=== PATIENT | female | born 1945 | race Caucasian/White ===

== ENCOUNTER 2022-06-02 07:42 | Observation (INO) ==
--- NOTE | 2022-05-02 15:09 | PAT Medication Instructions ---
Medication Instructions Date of Service May 02, 2022 Home Medications Medication Instructions Recorded tramadol 50 mg tablet 50 mg PO Q8H PRN #30 tab 03/28/22 amlodipine 5 mg tablet 5 mg PO QAM baclofen 10 mg tablet 10 mg PO QPM cholecalciferol (vitamin D3) 50 mcg (2,000 unit) tablet (Vitamin D3) 50 mcg PO QAM citalopram 10 mg tablet 10 mg PO QAM levothyroxine 25 mcg capsule 25 mcg PO QAM multivit with min-folic acid-lutein 200 mcg-137.5 mcg chewable tablet (Adult Multivitamin (w-lutein)) 1 tab PO QAM pregabalin 100 mg capsule (Lyrica) 100 mg PO TID ropinirole 0.5 mg tablet 2.5 mg PO QAM ropinirole 2 mg tablet 2 mg PO QAM tramadol 50 mg tablet 50 mg PO Q8H PRN pregabalin 25 mg capsule (Lyrica) 25 mg PO TID DO NOT take the morning of surgery cholecalciferol (vitamin D3) 50 mcg (2,000 unit) tablet (Vitamin D3) 50 mcg PO QAM multivit with min-folic acid-lutein 200 mcg-137.5 mcg chewable tablet (Adult Multivitamin (w-lutein)) 1 tab PO QAM ropinirole 0.5 mg tablet 2.5 mg PO QAM ropinirole 2 mg tablet 2 mg PO QAM Take morning of surgery With a small sip of water, OTHERWISE NOTHING TO EAT OR DRINK AFTER MIDNIGHT: citalopram 10 mg tablet 10 mg PO QAM levothyroxine 25 mcg capsule 25 mcg PO QAM amlodipine 5 mg tablet 5 mg PO QAM pregabalin 100 mg capsule (Lyrica) 100 mg PO TID tramadol 50 mg tablet 50 mg PO Q8H PRN (if needed) pregabalin 25 mg capsule (Lyrica) 25 mg PO TID Take evening before surgery baclofen 10 mg tablet 10 mg PO QPM tramadol 50 mg tablet 50 mg PO Q8H PRN (if needed) pregabalin 25 mg capsule (Lyrica) 25 mg PO TID Other Notes If you have any questions please call us at [phone] or [phone] or [phone] or [phone]
--- NOTE | 2022-05-05 10:35 | Anesthesiology Consultation ---
Date of Service May 05, 2022 Assessment & Plan (1) Encounter for pre-operative examination: - Hx syncope/near syncope: Patient reported having recent echo done but she could not remember indication at PAT visit. Received Echo which was done 03/29/22- indication on report was syncope. Called patient: she states she does have intermittent episodes of syncope/near syncope. No syncopal episodes in the last several months but does still occasional near syncope episodes (like when coming out of hot shower). Spoke with patient's PCP (ROMARIO Chanel) who confirmed patients reports of hx of syncope/near syncope and unremarkable workup of this- she states she does not feel anything further needed prior to shoulder surgery from this perspective stating she "should be okay" for surgery as scheduled without further testing and/or evaluation. - COVID screening: Per assessment on 05/05: No known COVID-19 positive contacts or current COVID-19 related symptoms. Travel screen negative. Patient v accinated. Surgeon arranging preop COVID testing. Awaiting results. Chart Review Chart Review: Acceptable Risk for Surgery (pending evaluation AM DOS) and Patient seen in Pre Admission Testing Teaching & Discussion Pre-Anesthesia Teaching/Discussion Notes: Instructed NPO after midnight before surgery,except medications with 15 cc of water. Medication instructions provided according to the PAT guidelines. History Surgery Operation Date: 06/02/22 11:30 Proposed Procedures p Left Reverse Total Shoulder Arthroplasty - Alfredito Martin, Height/Weight Height: 5 ft 3 in Weight: 88.1 kg Allergies Allergy/AdvReac Type Severity Reaction Status Date / Time adhesive Allergy Mild Blistering Verified 11/14/15 16:46 skin celecoxib Allergy Mild Rash Verified 11/14/15 16:46 atorvastatin [From Lipitor] AdvReac Intermediate Leg pain Verified 05/05/22 11:21 Medications Home Medications Medication Instructions Recorded Confirmed Last Taken amlodipine 5 mg tablet 5 mg PO QAM 11/29/21 05/02/22 Unknown baclofen 10 mg tablet 10 mg PO QPM 11/29/21 05/02/22 Unknown cholecalciferol (vitamin D3) 50 50 mcg PO QAM 11/29/21 05/02/22 Unknown mcg (2,000 unit) tablet (Vitamin D3) citalopram 10 mg tablet 10 mg PO QAM 11/29/21 05/02/22 Unknown levothyroxine 25 mcg capsule 25 mcg PO QAM 11/29/21 05/02/22 Unknown multivit with min-folic 1 tab PO QAM 11/29/21 05/02/22 Unknown acid-lutein 200 mcg-137.5 mcg chewable tablet (Adult Multivitamin (w-lutein)) pregabalin 100 mg capsule (Lyrica) 100 mg PO TID 11/29/21 05/02/22 Unknown ropinirole 0.5 mg tablet 0.5 mg PO QAM 11/29/21 05/05/22 Unknown ropinirole 2 mg tablet 2 mg PO QAM 11/29/21 05/02/22 Unknown tramadol 50 mg tablet 50 mg PO Q8H PRN #30 tab 03/28/22 05/02/22 Unknown pregabalin 25 mg capsule (Lyrica) 25 mg PO TID 05/02/22 05/02/22 Unknown Past Medical History Medical History Anxiety Bilateral cataracts Hearing deficit History of COVID-19 Dx 06/2021 > symptoms at time: fatigue > resolved Hypertension Hypothyroidism Osteoarthritis Knees Exercise / Class Metabolic Activity II 4-5 Yardwork/Stairs/Walk up hill Past Family History Family History Father Skin cancer Father Hypertension Mother Hypertension Father Stroke Mother Stroke Uterine cancer Sister Diabetes Sister Stroke Myocardial infarction Sister Hypertension Past Surgical History Surgical History History of anesthesia reaction Slow to wake History of bilateral knee arthroplasty History of colonoscopy History of repair of hiatal hernia Hx of total hysterectomy Hx of wisdom tooth extraction Past Anesthesia History No Family Hx of Anesthesia Complications and Other (Slow to wake, "nasty" with anesthesia emergence hiatal hernia) History of PONV No Hx of Motion Sickness Social History Smoking Status: Never smoker Do You Dip or Chew Tobacco: No Hx Alcohol Use: No Hx Substance Use: No substance use type: does not use Review of Systems Patient denies chest pain, shortness of breath, dyspnea on exertion, fever, chills, cough, wheezing, palpitations. Physical Exam Vital Signs VITALS BP 154/73 P 62 TEMP 98.3 SP02 96%RA RESP 16 PHYSICAL Full cervical extension range of motion. Full TMJ range of motion. TMD 3 finger breaths Mallampati Score 3 Dentition: upper full denture Lungs: clear throughout to auscultation Cardiac: regular rate and rhythm, no murmurs noted Spine: normal Carotid arteries: negative bruit Extremities: no edema Lab Results Anesthesia Preop Results Results Anesthesia Widget: WBC 7.84 K/uL (4.8-10.8) 05/05/22 Hgb 14.3 g/dL (12.0-16.0) 05/05/22 Hct 44.0 % (37-47) 05/05/22 Plt 288 K/uL (130-400) 05/05/22 Na 141 mmol/L (136-145) 05/05/22 K 3.9 mmol/L (3.5-5.1) 05/05/22 Cl 106 mmol/L (98-107) 05/05/22 CO2 29 mmol/L (21-32) 05/05/22 BUN 15 mg/dl (6-23) 05/05/22 Creat 0.59 mg/dl (0.6-1.2) L 05/05/22 Glucose Level 77 mg/dl (70-99(Fasting)) 05/05/22 PT 10.2 Seconds (9.0-12.0) 05/05/22 PTT 26.5 Seconds (21.0-31.0) 05/05/22 INR 1.0 (0.9-1.1) 05/05/22 Blood Type A Positive 05/05/22 Antibody Screen NEGATIVE 05/05/22 Testing Electrocardiogram Date: 05/05/22 SB at 59bpm. Low voltage QRS. PRWP, consider anterior MA vs lead placement vs LVH (compared to 04/25/2000, questionable change in QRS duration per form carpenter comparison). Chest X-Ray Date: 05/05/22 FINDINGS: Lung volumes are normal. Lungs are clear. There is no pneumothorax or pleural effusion. Mild cardiomegaly. Mediastinal contours are normal. There is no evidence for pulmonary edema. IMPRESSION: No acute cardiopulmonary findings. Mild cardiomegaly. Echocardiogram Date: 03/29/22 EF 50 to 55%. Low normal global left ventricular systolic function. Borderline concentric LVH. Impaired relaxation pattern of LV diastolic filling. Mild thickening calcification of the anterior and posterior mitral valve leaflets.
--- NOTE | 2022-06-01 07:45 | History & Physical Report ---
Date of Service June 01, 2022 History of Present Illness Chief Complaint: Cuff tear arthropathy of the left shoulder. Primary Care Provider: Suhail Waters MD Angelia is a pleasant 76-year-old female who has been dealing with chronic bilateral shoulder pain. 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 She is really struggling with her left shoulder. After failing conservative treatment, she elected to proceed with a left reverse shoulder arthroplasty. Allergies Allergy/AdvReac Type Severity Reaction Status Date / Time adhesive Allergy Mild Blistering Verified 11/14/15 16:46 skin celecoxib Allergy Mild Rash Verified 11/14/15 16:46 atorvastatin [From Lipitor] AdvReac Intermediate Leg pain Verified 05/05/22 11:21 Home Medications Medication Instructions Recorded Confirmed Type amlodipine 5 mg tablet 5 mg PO QAM 11/29/21 05/02/22 History baclofen 10 mg tablet 10 mg PO QPM 11/29/21 05/02/22 History cholecalciferol (vitamin D3) 50 50 mcg PO QAM 11/29/21 05/02/22 History mcg (2,000 unit) tablet (Vitamin D3) citalopram 10 mg tablet 10 mg PO QAM 11/29/21 05/02/22 History levothyroxine 25 mcg capsule 25 mcg PO QAM 11/29/21 05/02/22 History multivit with min-folic 1 tab PO QAM 11/29/21 05/02/22 History acid-lutein 200 mcg-137.5 mcg chewable tablet (Adult Multivitamin (w-lutein)) pregabalin 100 mg capsule (Lyrica) 100 mg PO TID 11/29/21 05/02/22 History ropinirole 0.5 mg tablet 0.5 mg PO QAM 11/29/21 05/05/22 History ropinirole 2 mg tablet 2 mg PO QAM 11/29/21 05/02/22 History tramadol 50 mg tablet 50 mg PO Q8H PRN pain #30 tabs 03/28/22 05/02/22 Rx pregabalin 25 mg capsule (Lyrica) 25 mg PO TID 05/02/22 05/02/22 History Past Med/Surg History Medical History Anxiety Bilateral cataracts Hearing deficit History of COVID-19 Dx 06/2021 > symptoms at time: fatigue > resolved Hypertension Hypothyroidism Osteoarthritis Knees Surgical History History of anesthesia reaction Slow to wake History of bilateral knee arthroplasty History of colonoscopy History of repair of hiatal hernia Hx of total hysterectomy Hx of wisdom tooth extraction Family History Father Skin cancer Father Hypertension Mother Hypertension Father Stroke Mother Stroke Uterine cancer Sister Diabetes Sister Stroke Myocardial infarction Sister Hypertension Social History Smoking Status: Never smoker Second Hand Exposure: No; Hx Alcohol Use: No Hx Substance Use: No Preferred Language: Kiswahili Communication Ability: Effective English Faculty Member Required: No Beliefs That Will Affect Care: None Current Living Situation: Spouse Feels Safe at Home: Yes Assistive Devices: Cane, Denture - Upper and Glasses Review of Systems All systems reviewed & are unremarkable except as noted in HPI & below. Physical Exam . Results & Data Results & Data Laboratory Results . Diagnostic Findings . PG Care Time/CCT Total # of Minutes Spent Total Time Spent with Patient: Total time spent is greater than 50% in coordination of care (as documented) at patient's floor/unit and/or counseling patient: Coding Level of Care Code None
--- NOTE | 2022-06-01 08:00 | History & Physical Report ---
Date of Service June 01, 2022 Assessment & Plan (1) Rotator cuff tear arthropathy of left shoulder: We will proceed with a left reverse shoulder arthroplasty. Postoperatively she will be kept overnight in the hospital for postop medical management. She plans to have the hospital set up home health upon discharge. History of Present Illness Chief Complaint: Cuff tear arthropathy of the left shoulder. Primary Care Provider: Suhail Waters MD Angelia is a pleasant 76-year-old female who has been dealing with chronic bilateral shoulder pain. 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 She is really struggling with her left shoulder. After found conservative treatment, she has elected proceed with a left reverse shoulder arthroplasty. Allergies Allergy/AdvReac Type Severity Reaction Status Date / Time adhesive Allergy Mild Blistering Verified 11/14/15 16:46 skin celecoxib Allergy Mild Rash Verified 11/14/15 16:46 atorvastatin [From Lipitor] AdvReac Intermediate Leg pain Verified 05/05/22 11:21 Home Medications Medication Instructions Recorded Confirmed Type amlodipine 5 mg tablet 5 mg PO QAM 11/29/21 05/02/22 History baclofen 10 mg tablet 10 mg PO QPM 11/29/21 05/02/22 History cholecalciferol (vitamin D3) 50 50 mcg PO QAM 11/29/21 05/02/22 History mcg (2,000 unit) tablet (Vitamin D3) citalopram 10 mg tablet 10 mg PO QAM 11/29/21 05/02/22 History levothyroxine 25 mcg capsule 25 mcg PO QAM 11/29/21 05/02/22 History multivit with min-folic 1 tab PO QAM 11/29/21 05/02/22 History acid-lutein 200 mcg-137.5 mcg chewable tablet (Adult Multivitamin (w-lutein)) pregabalin 100 mg capsule (Lyrica) 100 mg PO TID 11/29/21 05/02/22 History ropinirole 0.5 mg tablet 0.5 mg PO QAM 11/29/21 05/05/22 History ropinirole 2 mg tablet 2 mg PO QAM 11/29/21 05/02/22 History tramadol 50 mg tablet 50 mg PO Q8H PRN pain #30 tabs 03/28/22 05/02/22 Rx pregabalin 25 mg capsule (Lyrica) 25 mg PO TID 05/02/22 05/02/22 History Past Med/Surg History Medical History Anxiety Bilateral cataracts Hearing deficit History of COVID-19 Dx 06/2021 > symptoms at time: fatigue > resolved Hypertension Hypothyroidism Osteoarthritis Knees Surgical History History of anesthesia reaction Slow to wake History of bilateral knee arthroplasty History of colonoscopy History of repair of hiatal hernia Hx of total hysterectomy Hx of wisdom tooth extraction Family History Father Skin cancer Father Hypertension Mother Hypertension Father Stroke Mother Stroke Uterine cancer Sister Diabetes Sister Stroke Myocardial infarction Sister Hypertension Social History Smoking Status: Never smoker Second Hand Exposure: No; Hx Alcohol Use: No Hx Substance Use: No Preferred Language: Amharic Communication Ability: Effective Field Collector Required: No Beliefs That Will Affect Care: None Current Living Situation: Spouse Feels Safe at Home: Yes Assistive Devices: Cane, Denture - Upper and Glasses Review of Systems All systems reviewed & are unremarkable except as noted in HPI & below. Physical Exam On physical examination of the left shoulder, she has a pseudoparalysis. She is unable to initiate forward elevation. She has pain of the glenohumeral joint line and subacromial space.. Constitutional WD/WN, vitals as above Respiratory normal respiratory effort, lungs clear to auscultation Cardiovascular RRR, no murmur, no edema Gastrointestinal (Abdomen) normal bowel sounds, soft, nontender, no hepatosplenomegaly Results & Data Results & Data Laboratory Results . Diagnostic Findings X-rays of the left shoulder show some mild to moderate arthritis. The slight superior migration of the humeral head in the glenoid.. PG Care Time/CCT Total # of Minutes Spent Total Time Spent with Patient: Total time spent is greater than 50% in coordination of care (as documented) at patient's floor/unit and/or counseling patient: Coding Level of Care Code None Diagnoses Rotator cuff tear arthropathy of left shoulder M75.102; M12.812
[~2022-06-02 07:42] MED LIST: ACETAMINOPHEN 500 MG TAB PO SCH; BUPIVACAINE 0.5 % 5 MG/1 ML PF 10ML VIAL ONE; DEXAMETHASONE SOD INJ 4 MG/ML VIAL ONE; FAMOTIDINE 20 MG TAB PO SCH; GABAPENTIN 300 MG CAP PO SCH; Ketorolac (*for OR use only*) 30 MG, dexAMETHasone 4 MG, KETAMINE HCL (**OR use only) 1... INFIL SCH; LIDOCAINE 2% 20 MG/ML 5 ML SYR IV ONE; LR 15ML/HR IV SCH; LR 60ML/HR IV SCH; MIDAZOLAM HCL 1 MG/ML 2ML VIAL ONE; ONDANSETRON INJ 2 MG/ML 2 ML VIAL ONE; PROPOFOL IV EMULSION 10 MG/ML 20 ML VIAL IV ONE; ROCURONIUM BROMIDE 10 MG/ML 5 ML VIAL IV ONE; TRANEXAMIC ACID 1,000 MG **IV Intra-op IV SCH; TRANEXAMIC ACID 1,000 MG **IV Pre-op IV SCH; ceFAZolin 2000MG 2,000 MG/15 ML SYR IV SCH; dexAMETHasone 4 MG TAB PO SCH; fentaNYL citrate 100 MCG/2 ML VIAL ONE
--- NOTE | 2022-06-02 08:15 | History & Physical Bridge Note ---
Date of Service June 02, 2022 History & Physical Bridge Note I have examined the patient, reviewed the History & Physical and in the interval since the performance of the History & Physical I have noted the following changes of clinical significance: no changes noted
[2022-06-02] MEDS ORDERED: ORTHO JOINT ANESTHETIC ONE (08:50)
[2022-06-02] MEDS ORDERED: fentaNYL citrate 100 MCG/2 ML VIAL IV PRN (08:53)
[2022-06-02] MEDS ORDERED: ONDANSETRON INJ 2 MG/ML 2 ML VIAL IV PRN ×2 (08:53→15:27)
[2022-06-02] MEDS ORDERED: ATROPINE SULFATE 0.1 MG/ML 10ML SYR IV PRN (08:53)
[2022-06-02] MEDS ORDERED: ePHEDrine sulfate 50 MG/ML AMP IV PRN (08:53)
--- NOTE | 2022-06-02 10:22 | Operative Report ---
PG Post Operative Report Pre & Post Diagnosis Operation Date: 06/02/22 09:10 Pre-Op Diagnosis: Left Shoulder Osteoarthritis with tendinopathy of the long head of biceps tendon Post-Op Diagnosis: Left Shoulder Osteoarthritis with tendinopathy of the long head of the biceps tendon I identified the patient and participated in the time-out.: Yes Procedure Operation Date: 06/02/22 09:10 Actual Procedures p Left Reverse Total Shoulder Arthroplasty(Left) with open biceps tenodesis as a distinct and separate procedure (modifier 59)- Alfredito Martin DO Surgeon Alfredito Martin DO Resistor Winder Alfredito Neves PA-C Estimated Blood Loss 200 Findings Consistent with Post-Op Diagnosis Specimens Left humeral head Description of Procedure A CPT code modifier 59: The long head of the biceps tendon was enlarged and inflamed consistent with tendinopathy. A tenodesis was opted. This was a separate and distinct portion of the procedure. For these reasons, a CPT code modifier 59 will be added to this case. Implants used: I used a [employer] Comprehensive reverse total shoulder arthroplasty system with a size 8 press fit micro humeral stem, a +6 offset humeral tray and a standard humeral bearing, a 25 mm small augment baseplate with a 6.5 mm central screw and superior and inferior locking screws, and a size 40 mm eccentric glenosphere. Angelia arrived at [facility] for the above procedure. She was seen in the preoperative holding area and the operative extremity was identified and signed. She was given a preoperative antibiotic, TXA, and an interscalene nerve block. She was taken back to the operating room, laid on table in supine position, and put under general anesthesia. She was then put into the beachchair position. The shoulder was then prepped and draped in sterile fashion. A timeout was done and the patient and the operative extremity was properly identified. A deltopectoral approach was used. Dissection was taken down through the fascia and the deltoid was retracted laterally and the conjoined tendon was retracted medially. The anterior shoulder was exposed. The biceps groove was opened up and the biceps tendon was examined extensively. The biceps tendon demonstrated enlargement and inflammatory changes consistent with longstanding inflammation in the context of osteoarthritis and cuff arthropathy. The long head of the biceps tendon was then tenodesed to the upper border of the pectoralis major. This was a separate and distinct portion of the procedure. The subscapularis was then directly released off the lesser tuberosity with a peel technique. The inferior capsule was released and the humeral head was dislocated. A canal finding reamer was sent down the center of the humeral canal. Sequential reaming up to a size 8 reamer was done. Off that reamer, a proximal humeral resection guide was placed. The proximal humerus was resected at 135 of inclination and 25 of retroversion. Osteophytes were then removed and the glenoid was exposed. Time was spent doing a complete capsular and labral release. The glenoid guide was then placed in the inferior aspect of the glenoid. A 3.2 mm Steinmann pin was then placed into the glenoid vault at 10 of inclination. The glenoid baseplate was then reamed. The final size 25 mm small augment baseplate was then impacted in the place. A 6.5 mm central screw was then placed followed by superior and inferior locking screws. A 40 mm eccentric glenosphere was then impacted into place. Surrounding soft tissues were then injected with 100 cc an orthopedic pain control cocktail. The proximal humerus was then exposed. Sequential broaching of the humerus up to a size 8 broach was done. Off that broach a +6 offset humeral tray was trialed. The shoulder was then reduced, brought through a full range of motion, and felt to be stable. The shoulder was then dislocated and the broach was removed. The final size 8 micro press-fit humeral stem was then impacted into place. A standard humeral bearing was then snapped onto a +6 offset humeral tray. The humeral tray was then impacted onto the humeral stem. The shoulder was once again reduced, brought through a full range of motion, and felt to be stable. The subscapularis was very poor quality and unable to be repaired. A dilute betadyne lavage was then done for 3 minutes. The joint was then irrigated with normal saline solution. Hemostasis was obtained. The interval was closed with 2-0 Vicryl suture. The skin was then closed with 2-0 Vicryl and sam. A Silverlon dressing was placed and the arm was rested in a regular arm sling. She was then extubated and transferred to a hospital bed. She taken to the ostanesthesia care unit in stable condition. She tolerated the procedure well. Alfredito Neves PA-C, was present for the entire procedure. He was critical for patient positioning, prepping, draping, retraction exposure, wound closure and application of sterile dressing. I attest to the content of the Intraoperative Record and any orders documented therein. Any exceptions are noted below.
[2022-06-02] MEDS ORDERED: NEOSTIGMINE METHYLSULFATE 1 MG/ML 10ML VIAL ONE (10:26)
[2022-06-02] MEDS ORDERED: GLYCOPYRROLATE 0.2 MG/ML VIAL ONE (10:26)
--- NOTE | 2022-06-02 11:15 | XRay Report ---
XR shoulder LT min 2V routine CLINICAL HISTORY: Post shoulder surgery TECHNIQUE: 3 views of the left shoulder were obtained. Comparison: Comparison is made to shoulder radiograph 08/29/2022 FINDINGS: Patient is status post shoulder arthroplasty with expected postsurgical changes including soft tissue swelling, subcutaneous emphysema, and surgical staple placement. No periarticular lucency or hardwar e fracture is seen. IMPRESSION: Expected postoperative appearance status post placement of shoulder arthroplasty. ACT 112: Negative or not required by law. Electronically signed by: Juan Aguirre M.D. 06/02/2022 11:14 AM
--- NOTE | 2022-06-02 14:11 | Anesthesiology Progress Note ---
Date of Service June 02, 2022 Anesthesia Post Procedure Vital Signs Vital Signs: Temp Pulse Resp BP Pulse Ox O2 Del Method O2 Flow Rate 06/02/22 14:00 97.7 F 86 16 116/59 L 96 Nasal Cannula 2 06/02/22 13:00 97.9 F 82 18 104/47 L 95 Nasal Cannula 2 06/02/22 12:30 79 21 130/59 L 95 Nasal Cannula 2 06/02/22 12:15 84 23 126/61 97 Nasal Cannula 2 06/02/22 12:00 90 21 138/56 L 94 Nasal Cannula 2 06/02/22 11:45 83 22 126/67 95 Nasal Cannula 2 06/02/22 11:20 97.0 F L 78 20 138/65 97 Nasal Cannula 2 06/02/22 11:30 79 22 133/65 96 Nasal Cannula 2 06/02/22 11:10 85 22 140/67 96 Nasal Cannula 2 06/02/22 11:00 85 22 151/70 H 99 Oxymask 13 06/02/22 10:50 87 21 144/66 H 100 Oxymask 13 06/02/22 10:42 97.3 F L 102 H 17 160/72 H 98 Oxymask 13 06/02/22 08:00 97.9 F 67 20 171/72 H 97 Room Air Pain Intensity Left Shoulder: Pain Intensity: 4 Transfer of Care Handoff Completed per policy Notes Mental Status: alert / awake / arousable and participated in evaluation Patient Amnestic to Procedure: Yes Nausea / Vomiting: adequately controlled Pain: adequately controlled Airway Patency, RR, SpO2: stable & adequate BP & HR: stable & adequate Hydration State: stable & adequate Anesthetic Complications: no major complications apparent and Pt Satisfied with anesthetic care
[2022-06-02] MEDS ORDERED: HYDROmorphone INJ 0.5 MG/0.5 ML SYR IV PRN (15:27)
[2022-06-02] MEDS ORDERED: SODIUM CHLORIDE 0.9% 1000ML 1,000 ML IV SCH (15:27)
[2022-06-02] MEDS ORDERED: bisacodyL 10 MG SUPP PR PRN (15:27)
[2022-06-02] MEDS ORDERED: NALOXONE HCL 0.4 MG/1 ML VIAL/CARP IV PRN (15:27)
[2022-06-02] MEDS ORDERED: oxyCODONE HCL IR 5 MG TAB (IMMEDIATE RELEASE) PO PRN (15:27)
[2022-06-02] MEDS ORDERED: MAGNESIUM HYDROXIDE SUSP 30 ML UDC PO PRN (15:27)
[2022-06-02] MEDS ORDERED: METOCLOPRAMIDE HCL INJ 5 MG/ML 2 ML VIAL IV PRN (15:27)
[2022-06-02] MEDS ORDERED: ACETAMINOPHEN 500 MG TAB PO SCH (15:27)
[2022-06-02] MEDS: PREGABALIN 25 MG CAP PO SCH ×2 (15:57→20:15)
[2022-06-02] MEDS: PREGABALIN 100 MG CAP PO SCH ×2 (15:57→20:15)
[2022-06-02] MEDS ORDERED: Nursing to Pharmacy Communication SCH (16:00)
[2022-06-02] MEDS: ACETAMINOPHEN 500 MG TAB PO SCH (18:43)
[2022-06-02] MEDS: ceFAZolin 2000MG 2,000 MG/15 ML SYR IV SCH (18:43)
[2022-06-02] MEDS: KETOROLAC TROMETHAMINE 15 MG/ML VIAL IV SCH (20:05)
[2022-06-02] MEDS: DOCUSATE SODIUM 100 MG CAP PO SCH (20:06)
[2022-06-02] MEDS ORDERED: BACLOFEN 10 MG TAB PO SCH (21:00)
[2022-06-02] MEDS ORDERED: SENNA 8.6 MG TAB PO SCH (21:00)
[2022-06-03] MEDS: ceFAZolin 2000MG 2,000 MG/15 ML SYR IV SCH (01:55)
[2022-06-03] MEDS: ACETAMINOPHEN 500 MG TAB PO SCH ×2 (02:50→09:27)
[2022-06-03] MEDS: KETOROLAC TROMETHAMINE 15 MG/ML VIAL IV SCH ×2 (02:50→07:48)
[2022-06-03] MEDS ORDERED: LEVOTHYROXINE SODIUM 25 MCG TABLET PO SCH (06:30)
--- NOTE | 2022-06-03 06:53 | Orthopedic Progress Note ---
Date of Service June 03, 2022 Assessment & Plan (1) Status post reverse total replacement of left shoulder: Overall she is doing very well. She is having much pain in the left shoulder. She will be seen by physical therapy today for ambulation and range of motion exercises. She can be discharged home later today. She will follow-up with orthopedics in 2 weeks. Estuardo Galan was seen and examined at bedside this morning. Overall she is doing very well. She is not having much pain in the left shoulder. She was able to get some sleep last night. She has no complaints.. Review of Systems All systems reviewed & are unremarkable except as noted in HPI & below. Physical Exam On physical examination of the left shoulder, the dressing is clean and dry. She is wearing her sling as instructed. She has motion of her hand and her wrist.. Results & Data Results & Data Laboratory Results . Diagnostic Findings Postoperative x-rays of the left shoulder show the prosthesis to be in anatomic alignment without any evidence of fracture, desiccation, or loosening. PG Care Time/CCT Total # of Minutes Spent Total Time Spent with Patient: Total time spent is greater than 50% in coordination of care (as documented) at patient's floor/unit and/or counseling patient: Coding Level of Care Code 47092 Post Operative Follow-Up Diagnoses Status post reverse total replacement of left shoulder Z96.612
--- NOTE | 2022-06-03 06:55 | Discharge Summary ---
Date of Service June 03, 2022 Admission HPI (Per Admitting) Angelia is a pleasant 76-year-old female who has been dealing with chronic bilateral shoulder pain. 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 She is really struggling with her left shoulder. After found conservative treatment, she has elected proceed with a left reverse shoulder arthroplasty. Admission Exam (Per Admitting) On physical examination of the left shoulder, she has a pseudoparalysis. She is unable to initiate forward elevation. She has pain of the glenohumeral joint line and subacromial space.. Principal Diagnosis Same as "Discharge Diagnosis" noted below under Discharge Instructions. Discharge Exam On physical examination of the left shoulder, the dressing is clean and dry. She is wearing her sling as instructed. She has motion of her hand and her wrist.. Discharge Data Procedures Performed Operation Date: 06/02/22 09:10 Actual Procedures p Left Reverse Total Shoulder Arthroplasty(Left) - Alfredito Martin DO Ordered Studies 06/02/22 05:00 US - OR guided needle placemen Routine Hospital Course (1) Status post reverse total replacement of left shoulder: On June 02 Angelia arrived at [facility] and underwent a left reverse shoulder replacement without complication. She had a general anesthetic and a left interscalene nerve block. Postoperatively she was placed in a sling and transferred to the general orthopedic floors. Her hospital course was uneventful. On postop day #1, her vital signs were stable and her pain was well controlled. She was able to participate well with physical therapy doing ambulation and range of motion exercises. She was then discharged home. She will follow-up with orthopedics in 2 weeks. PG Care Time/CCT Total # of Minutes Spent Total Time Spent with Patient: Total time spent is greater than 50% in coordination of care (as documented) at patient's floor/unit and/or counseling patient: Discharge Plan Discharge Items Patient Disposition: Home - Home Health Services Reason For Visit: Left Shoulder Osteoarthritis Discharge Diagnosis: Left reverse shoulder replacement Activity: Per Instructions section Non-emergency contact: Surgeon Call non-emergency contact if: your wound has increased redness and your wound has increased drainage Follow-up/Referrals: Suhail Waters MD [Primary Care Provider] - Diet: Regular Addtl Attending Provider Instructions: Activity and Therapy Recommendations: * If you are using [facility] then therapy will be provided at your home until they feel you have accomplished all of your goals. * If you are using [facility] then Physical Therapy will be provided until they feel you are ready to start Outpatient Physical Therapy. * If you are not using home therapy then Outpatient Physical Therapy should start about 3-5 days from your day of surgery. Therapy will last about 8-12 weeks * Wear your sling for 3 weeks, unless otherwise instructed. You may remove your sling to shower and to dress, but otherwise, you should be in your sling at all times, including while sleeping * The shoulder replacement is very stable and you can use your hand while in the sling * You were shown a series of exercises in the hospital. Do these exercises daily including the exercises you were shown in physical therapy. Medications: * Narcotic You will likely be sent home from the hospital with a prescription for the narcotic pain medication that worked best throughout your stay. * Other medications may be prescribed for specific circumstances. If you have any questions, please call the office at . * Resume previous home medications unless otherwise instructed Dressing Care: Leave the Silverlon dressing in place for 7 days. After 7 days you may remove the dressing. If the incision is not draining then you may leave the sam open to air. If there is a little bit of drainage or if the sam are getting stuck on your clothing then cover the incision with a dry dressing. The sam will be removed at your 2 week follow-up appointment. Showering: You may shower with the Silverlon dressing in place. Do not let the shower spray hit the dressing directly. Pat the Silverlon dressing dry. If the dressing becomes wet underneath, then simply remove the dressing. Keep the incision dry until you are 7 days out from the day of surgery. After 7 days you may remove the Silverlon dressing and shower with the sam exposed. Let soapy water run over the sam and pat them dry. Do not scrub or soak the incision. Things To Watch For: * Drainage from the incision site that occurs more than one week after your surgery. * Increased redness at the incision site. * Fever above 102 degrees Fahrenheit. * Unusual chest pain or shortness of breath. * Call [facility] at with any of the above problems Follow-Up Visit: Follow-up with Dr. Martin's PA (Alfredito Neves) 2-3 weeks after your day of surgery. He will remove your sam and answer any questions. If you have any additional questions or concerns, Dr Martin is usually in the office at the same time and will be available An appointment was probably scheduled when you signed-up for surgery in the office. If you have any questions call More detailed instructions as well as Frequently Asked Questions were provided in a folder by our office when you signed-up for surgery. Please review these instructions when you get home. If you have any further questions or concerns, please feel free to call the office at [phone] Pending Studies at Discharge: No Stand-Alone Forms: My [facility] [employer], Smoking Cessation Medications and DC Order Prescriptions: New oxycodone-acetaminophen 5-325 mg tablet 1 tab PO Q6H PRN (Reason: pain) Qty: 30 0RF Continued tramadol 50 mg tablet 50 mg PO Q8H PRN (Reason: pain) Qty: 30 0RF amlodipine 5 mg tablet 5 mg PO QAM baclofen 10 mg tablet 10 mg PO QPM citalopram 10 mg tablet 10 mg PO QAM pregabalin [Lyrica] 100 mg capsule 100 mg PO TID ropinirole 2 mg tablet 2 mg PO QAM ropinirole 0.5 mg tablet 0.5 mg PO QAM [id number] acid-lutein [Adult Multivitamin (w-lutein)] 200-137.5 mcg tablet,chewable 1 tab PO QAM cholecalciferol (vitamin D3) [Vitamin D3] 50 mcg (2,000 unit) tablet 50 mcg PO QAM levothyroxine 25 mcg capsule 25 mcg PO QAM pregabalin [Lyrica] 25 mg Capsule 25 mg PO TID Discharge Orders: Discharge Order (Routine); Ordered 06/03/22 Ordered By: Alfredito Martin Admission Data Admit Date/Time: 06/02/22 10:43 Attending Provider: Alfredito Martin Admit Provider: Alfredito Martin Primary Care Provider: Suhail Waters
[2022-06-03] MEDS: PREGABALIN 25 MG CAP PO SCH (07:48)
[2022-06-03] MEDS: PREGABALIN 100 MG CAP PO SCH (07:48)
[2022-06-03] MEDS: DOCUSATE SODIUM 100 MG CAP PO SCH (07:51)
[2022-06-03] MEDS ORDERED: dexAMETHasone 4 MG TAB PO SCH (08:00)
[2022-06-03] MEDS ORDERED: amLODIPine BESYLATE 5 MG TAB PO SCH (09:00)
[2022-06-03] MEDS ORDERED: rOPINIRole HCL 2 MG TABLET PO SCH (09:00)
[2022-06-03] MEDS ORDERED: CITALOPRAM 20 MG TAB PO SCH (09:00)
[2022-06-03] MEDS ORDERED: MULTIVITAMIN TAB PO SCH (09:00)
[2022-06-03] MEDS ORDERED: rOPINIRole HCL 0.25 MG TABLET PO SCH (09:00)
== END 2022-06-03 11:21 | disposition home health service (06) ==
LOC: 3E 07:42 → ASU 07:42